=== PATIENT | male | born 1995 | race Caucasian/White ===

== ENCOUNTER 2018-06-30 04:46 | Emergency (ER) | payer OTHER ==
[~2018-06-30] VITALS: Ht 180.3 cm; Wt 59.0 kg
[2018-06-30 04:46] VITALS: BP 127/72
--- NOTE | 2018-06-30 04:46 | NUR ---
BIB [facility], AMBULATED TO CHAIR E
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
[2018-06-30 05:13] VITALS: BP 127/72
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
== END 2018-06-30 05:13 ==
LOC: MED 04:46
DX: L53.9 Erythematous condition, unspecified (principal); F10.10 Alcohol abuse, uncomplicated; Z02.89 Encounter for other administrative examinations; V89.2XXA Person injured in unspecified motor-vehicle accident, traffic, initial encounter; Y93.89 Activity, other specified; Y92.89 Other specified places as the place of occurrence of the external cause; Y99.8 Other external cause status
CPT/HCPCS: 99283